=== PATIENT | male | born 1975 | race African-American/Black ===

== ENCOUNTER 2016-11-29 15:12 | Emergency (ER) | payer OTHER ==
[~2016-11-29] VITALS: Ht 180.3 cm; Wt 108.9 kg
[2016-11-29] MEDS ORDERED: NO MEDICATIONS (15:36)
[2016-11-29 19:05] LABS: ALT (SGPT) 53 U/L (10-40); AST (SGOT) 39 U/L (10-42)
[2016-12-02 07:52] LABS: HA AB IGM (HEPPAN) Nonreactive (()); HB CORE AB IGM (HEPPAN) Nonreactive (Nonreactive); HB S AG (HEPPAN) Nonreactive (Nonreactive); HEP C AB (HEPPAN) Nonreactive (Nonreactive); HEP C AB SIGNAL TO CUTOFF 0.03 ratio (<1.00)
== END 2016-11-29 19:47 | disposition home or self-care (01) ==
LOC: SED 15:12
PROVIDERS: Nurse Practitioner
DX: R79.9 Abnormal finding of blood chemistry, unspecified (principal); Z20.5 Contact with and (suspected) exposure to viral hepatitis
CPT/HCPCS: 36415; 80074; 84450; 84460; 99283